=== PATIENT | female | born 1940 | race Caucasian/White ===

== ENCOUNTER 2017-04-01 17:19 | Inpatient (IN) | payer OTHER, MEDICAID ==
[~2017-04-01] VITALS: Ht 162.6 cm; Wt 89.2 kg
[~2017-04-01 17:19] MED LIST: DOCU-144 PO; GLIP-95 PO; HYD25 PO; LEVO50TA74 PO; MELO-110 PO; METF850T PO; OMEP20CA16 PO
[2017-04-01] MEDS ORDERED: SODIUM CHLORIDE 0.9% 1L BAG IV* STA (18:05)
[2017-04-01] MEDS ORDERED: ONDANSETRON 4 MG INJ IV STA (18:15)
[2017-04-01] MEDS ORDERED: morphine 2 MG INJ IV STA (18:15)
[2017-04-01] MEDS ORDERED: ACETAMINOPHEN 325 MG TAB PO ONE (18:30)
--- NOTE | 2017-04-01 18:57 | RADRPT ---
PROCEDURE: CT Abdomen and Pelvis without contrast. CLINICAL INDICATION: Abdominal pain. TECHNIQUE: CT scan of the abdomen and pelvis without contrast was performed on a multidetector hig h-resolution CT scanner. Coronal and sagittal reformatted images were obtained from the axial [facility] e images. Images were reviewed on a high-resolution PACS workstation. One or more of the following d ose reduction techniques were used: Automated exposure control, adjustment of the mA and/or kV accor ding to patient size and use of iterative reconstruction technique. The total exam CTDI equals 20.9 mGy and the total exam DLP equals 1217 mGy-cm. COMPARISON: None. FINDINGS: CT abdomen: Mild ground-glass opacities in the bilateral lung bases is likely atelectasis. The heart size is normal. No pericardial effusion identified. Right hilar calcifications, likely from old granulomatous disease. The liver demonstrates normal size and density. No liver mass identified. Multiple sub centimeter calcified granulomas in the liver. The gallbladder is surgically absent.. There is no intrahepatic or extrahepatic biliary dilatation. The spleen is normal in size. No focal splenic abnormality identified. No gross abnormality of the stomach is identified. The pancreas is unremarkable. The adrenal glands appear normal. The right kidney is surgically absent. The left kidney is unremarkable. There is no evidence of renal mass, renal calculi or hydronephrosis. The aorta is of normal caliber. Aortic vascular calcifications are present. No adenopathy identified. The bowel and mesentery are unremarkable. CT pelvis: The urinary bladder is decompressed and not well evaluated. Atherosclerotic calcification is seen in uterine arteries iliac arteries and femoral arteries. The pelvic organs are normal. The pelvic sidewalls and inguinal regions are clear. The sigmoid colon and rectum are remarkable for sigmoid diverticulosis. No adenopathy, free fluid or inflammatory change identified. The osseous structures are remarkable for degenerative spondylosis of the spine. No osteolytic or osteoblastic lesion is detected. IMPRESSION: 1. Previous cholecystectomy and right nephrectomy. 2. Calcified pulmonary and hepatic granulomas suggesting old granulomatous disease. 3. Advanced atherosclerotic coronary artery and peripheral vascular disease. 4. Mild sigmoid diverticulosis without evidence of diverticulitis. 5. No mass, lymphadenopathy, or focal acute inflammatory process is identified. RPTAT: QQ .Quique Hernandez MD, MD Date Time Electronically viewed and signed by .Quique Hernandez MD, on 04/01/2017 18:56 .M/
--- NOTE | 2017-04-01 19:01 | RADRPT ---
PROCEDURE: XR Chest. CLINICAL INDICATION: Sepsis TECHNIQUE: Anterior chest x-ray. COMPARISON: None. FINDINGS: The lungs are clear. No pleural effusion identified. There is no evidence of pneumothorax. There is atherosclerotic calcification of the aorta. The cardiomediastinal silhouette is otherwise u nremarkable. The soft tissues are normal. Osseous structures are unremarkable. IMPRESSION: 1. No acute disease is seen in the chest. RPTAT: QQ .Quique Hernandez MD, MD Date Time Electronically viewed and signed by .Quique Hernandez MD, MD on 04/01/2017 19:00 .M/
--- NOTE | 2017-04-01 19:17 | ERA ---
ER Documentation Chief Complaint Date/Time DATE: 04/01/17 TIME: 19:15 Chief Complaint ap x 1 week HPI 76-year-old female history of diabetes, obesity who presents to the emergency room complaining of abdominal pain. She describes abdominal pain for 1 week that is bandlike to the upper abdomen. It is constant and not postprandial. She also notes that her glucose values have been elevated despite taking oral medication. She had a low-grade fever upon arrival. She denies any recent travel sick contacts or antibiotics. No diarrhea. No dysuria urgency or frequency. ROS All systems reviewed and are negative except as per history of present illness. Medications Home Meds Active Scripts Meloxicam* (Mobic*) 15 Mg Tablet, 15 MG PO DAILY, #20 TAB Prov:SANDRINE PEREZ MD 05/28/15 Docusate Sodium* (Colace*) 100 Mg Capsule, 100 MG PO TID, #30 Prov:MARINA DANIEL MD 01/27/15 Reported Medications Levothyroxine Sodium* (Levothyroxine Sodium*) 50 Mcg Tablet, 50 MCG PO AC BREAKFAST, TAB STOPED TAKING THIS RX BAD SIDE EFFECTS REPORTED BY PT 01/27/15 Omeprazole* (Omeprazole*) 20 Mg Capsule.dr, 20 MG PO DAILY, CAP 12/16/14 Hydrochlorothiazide* (Hydrochlorothiazide*) 25 Mg Tab, 25 MG PO DAILY, TAB 12/16/14 Metformin Hcl* (Metformin Hcl*) 850 Mg Tablet, 850 MG PO BID, TAB 12/16/14 Glipizide* (Glipizide*) 10 Mg Tablet, 10 MG PO AC MEALS 04/12/13 Allergies Allergies: Coded Allergies: tramadol (Verified Allergy, Mild, itchy, 05/28/15) PMhx/Soc History of Surgery: Yes (RT KIDNEY REMOVAL 2007; GALL BLADDER REMOVAL 2007) Anesthesia Reaction: No Hx Neurological Disorder: No Hx Respiratory Disorders: No Hx Cardiac Disorders: No (HTN) Hx Miscellaneous Medical Probl: Yes (arthiritis, osteoporosis) Hx Alcohol Use: No Hx Substance Use: No Hx Tobacco Use: No FmHx Family History: diabetes Physical Exam Vitals Vital Signs Date Time Temp Pulse Resp B/P Pulse Ox O2 Delivery O2 Flow Rate FiO2 04/01/17 20:34 98.5 04/01/17 20:00 75 16 161/79 93 Room Air 04/01/17 19:00 88 20 115/49 97 Room Air 04/01/17 17:22 100.0 103 18 179/78 99 Physical Exam General: Well developed, well nourished, no acute distress Head: Normocephalic, atraumatic Eyes: Pupils equally reactive, EOM intact ENT: Moist mucous membranes Neck: Supple, no lymphadenopathy Respiratory: Lungs clear bilaterally, no distress Cardiovascular: RRR, no murmurs, rubs, or gallops Abdominal: Soft, diffuse abdominal tenderness that is inconsistent, negative Pichardo sign, no tenderness to McBurney's point, no peritonitis : Deferred MSK: No edema, no unilateral swelling, 5/5 strength Neurologic: Alert and oriented, moving all extremities, normal speech, no focal weakness, no cerebellar signs Skin: No rash Psych: Normal mood Result Diagram: 04/01/17190404/01/171904 Results 24 hrs Laboratory Tests Test 04/01/17 19:02 04/01/17 19:05 04/01/17 20:17 04/01/17 20:40 Blood Gas Specimen Source Blood venous Arterial Blood Date Drawn 04/01/2017 7:15:34 PM Arterial Blood Gas Puncture Site VENOUS LINE Yusuf Test N/A Venous Blood pH 7.399 Venous Blood pCO2 (Temp Corrected) 33.9mmHG Venous Blood pO2 (Temp Corrected) 74.0mmHG Venous Blood HCO3 20.5mmol/L Venous Blood Oxygen Saturation 94.3mmHG Venous Blood Base Excess -3.5mmol/L Venous Blood Total Hemoglobin 14.1g/dl Venous Blood Oxyhemoglobin 92.9% Venous Blood Methemoglobin 0.1% Carboxyhemoglobin 1.4% Blood Gas Temperature 37.0C Blood Gas Modality ROOM AIR FiO2 21.0% Blood Gas Notified Whom AA Blood Gas Notified Time 04/01/2017 7:25:14 PM White Blood Count 10.410^3/ul Red Blood Count 4.6110^6/ul Hemoglobin 13.0g/dl Hematocrit 39.3% Mean Corpuscular Volume 85.2fl Mean Corpuscular Hemoglobin 28.2pg Mean Corpuscular Hemoglobin Concent 33.1g/dl Red Cell Distribution Width 13.2% Platelet Count 07779^3/UL Mean Platelet Volume 10.7fl Neutrophils % 62.1% Lymphocytes % 28.3% Monocytes % 6.9% Eosinophils % 1.4% Basophils % 0.7% Nucleated Red Blood Cells % 0.0/100WBC Neutrophils # (Manual) 6.510^3/ul Lymphocytes # 3.010^3/ul Monocytes # 0.710^3/ul Eosinophils # 0.210^3/ul Basophils # 0.110^3/ul Nucleated Red Blood Cells # 0.010^3/ul Prothrombin Time 12.7Sec Prothrombin Time Ratio 1.0 INR International Normalized Ratio 0.95 Activated Partial Thromboplast Time 26.4Sec Sodium Level 134mmol/L Potassium Level 4.4mmol/L Chloride Level 100mmol/L Carbon Dioxide Level 21mmol/L Anion Gap 17 Blood Urea Nitrogen 42mg/dl Creatinine 2.48mg/dl Glucose Level 329mg/dl Lactic Acid Level 2.7mmol/L 2.1mmol/L Calcium Level 9.4mg/dl Total Bilirubin 0.2mg/dl Direct Bilirubin 0.00mg/dl Indirect Bilirubin 0.2mg/dl Aspartate Amino Transf (AST/SGOT) 22IU/L Alanine Aminotransferase (ALT/SGPT) 32IU/L Alkaline Phosphatase 112IU/L Total Protein 7.7g/dl Albumin 4.0g/dl Globulin 3.70g/dl Albumin/Globulin Ratio 1.08 Urine Color YELLOW Urine Clarity CLOUDY Urine pH 5.0 Urine Specific [place] 1.014 Urine Ketones NEGATIVEmg/dL Urine Nitrite NEGATIVEmg/dL Urine Bilirubin NEGATIVEmg/dL Urine Urobilinogen NEGATIVEmg/dL Urine Leukocyte Esterase 3+Violette/ul Urine Microscopic RBC 4/HPF Urine Microscopic WBC 177/HPF Urine Squamous Epithelial Cells FEW/HPF Urine Bacteria MANY/HPF Urine Hemoglobin 1+mg/dL Urine Glucose 2+mg/dL Urine Total Protein 1+mg/dl Current Medications Medications (Trade) Dose Ordered Sig/Alban Route PRN Reason Start Time Stop Time Status Last Admin Dose Admin Sodium Chloride (NS) 2,760 ml BOLUS OVER 2 HOURS STAT IV* 04/01/17 18:05 04/01/17 18:06 DC 04/01/17 19:29 Acetaminophen (Tylenol Tab) 650 mg ONCE ONCE PO 04/01/17 18:30 04/01/17 18:31 DC 04/01/17 19:30 Morphine Sulfate (morphine) 2 mg ONCE STAT IV 04/01/17 18:15 04/01/17 18:16 DC 04/01/17 19:31 Ondansetron HCl 4 mg 4 mg ONCE STAT IV 04/01/17 18:15 04/01/17 18:16 DC 04/01/17 19:30 Ceftriaxone Sodium (Rocephin) 50 ml @ 100 mls/hr ONCE ONCE IVPB 04/01/17 21:30 04/01/17 21:59 DC 04/01/17 21:44 Ondansetron HCl (Zofran Inj) 4 mg BRIDGE ORDER PRN IV NAUSEA AND/OR VOMITING 04/01/17 22:30 04/02/17 22:29 Acetaminophen (Tylenol Tab) 650 mg ER BRIDGE PRN PO MILD PAIN/FEVER 04/01/17 22:30 04/02/17 22:29 Procedures/MDM EKG, MONITORS, & DIAGNOSTIC IMAGING: Chest x-ray: I reviewed and interpreted a 1 view of the chest Mediastinum: No enlargement Cardiac silhouette: No cardiomegaly Airspace: Clear lung devries bilaterally without evidence of pneumothorax Bones: No evidence of fracture EKG: I reviewed and interpreted a 12-lead EKG. Rhythm: Normal sinus rhythm Ectopy: None Intervals: No abnormalities ST segments: No elevations or depressions T waves: No contiguous inversions CT abdomen and pelvis IMPRESSION: 1. Previous cholecystectomy and right nephrectomy. 2. Calcified pulmonary and hepatic granulomas suggesting old granulomatous disease. 3. Advanced atherosclerotic coronary artery and peripheral vascular disease. 4. Mild sigmoid diverticulosis without evidence of diverticulitis. 5. No mass, lymphadenopathy, or focal acute inflammatory process is identified. RPTAT: QQ LAB INTERPRETATION: No leukocytosis or left shift, lactic acid elevation but down trending to 2.1. The patient has a creatinine elevation above baseline, urinary tract infection noted MEDICAL DECISION MAKING: The patient presents with low-grade fever and abdominal pain. Given the patient 's age this is a very broad differential includes intra-abdominal process, urinary tract infection, viral process among others. Low concern for cardiac etiology or pulmonary process. The patient will benefit from sepsis screening, symptom control. The patient also has hyperglycemia will benefit to rule out diabetic ketoacidosis. ER COURSE: The patient was given IV fluids, 30 cc/kg. The patient had blood cultures. The patient does have evidence of urinary tract infection. She was given ceftriaxone. The patient only has 1 out of 4 Sirs criteria. She does have lactic acid elevation but this does not meet from criteria for sepsis or severe sepsis. The patient was given ceftriaxone and 30/kg of saline. Her lactic acid is trending down. No indication for pressors or central line. I kept the patient and/or family informed of laboratory and diagnostic imaging results throughout the emergency room course. DISPOSITION PLAN: Medical surgical admission for management of dehydration and urinary tract infection CONSULTATION: Accepting care team and consultations: I discussed the current laboratory data, diagnostic imaging and emergency care provided. Admitting team: Dr. Ohara Admitting team indication: Insurance directed Sepsis Documentation: It should be noted that the patient only had 1 out of 4 Sirs criteria in the emergency department, this is not consistent with sepsis. Patient's infectious symptoms have not stabilized and the patient is at risk of rapid decompensation. The patient will be admitted for careful hydration, antibiotic therapy, and infectious source control. SEVERE SEPSIS CRITERIA: Infectious source: Urinary tract infection End organ damage indicated by: [Lactate > 2.0 mmol/L SEPSIS MANAGEMENT Time of recognition of severe sepsis/septic shock: Urinary tract infection diagnosed at 9:26 PM 3 HOUR BUNDLE Blood cultures x 2 before broad-spectrum antibiotics: Yes 30 ml/kg NS bolus Completed Initial lactate greater than 2 Repeat lactate 2.1 SEPTIC SHOCK ASSESSMENT: No lactic acid > 4.0 No persistent hypotension (SBP < 90 or 40 mmHg drop, MAP < 65) despite 30 mL/kg IV fluid bolus VOLUME REASSESSMENT FOR SEPTIC SHOCK: Patient does not meet septic shock criteria PERSISTENT HYPOTENSION TREATMENT: Comfort care No Central line Not Required Vasopressor started Not required I considered further perfusion assessment with CVP measurement, SCVO2, bedside ultrasound volume assessment, passive leg raise, trial of further fluid bolus. And proceeded with 30 ml/kg fluid bolus of NSS, broad spectrum antbiotics, and admission. CRITICAL CARE Critical care time 35 minutes Emergent fluid management while maintaining close respiratory support. Provision of immediate and broad-spectrum antibiotic therapy. Simultaneous assessment for possible sources in order to direct targeted therapy. Consideration for invasive and chemical support to prevent cardiopulmonary collapse. Critical care time is independent of procedures performed. Departure Diagnosis: Primary Impression: Abdominal pain Qualified Code: R10.84 - Generalized abdominal pain Additional Impressions: Urinary tract infection Qualified Code: N30.00 - Acute cystitis without hematuria Lactic acidosis Acute renal insufficiency Condition: Stable TASHIA WYNNE MD Apr 01, 2017 19:17
[2017-04-01 19:27] LABS: MODE ROOM AIR; MetHgb Venous 0.1 %; Sample Type Blood venous; Venous COHb 1.4 %; Venous Fraction OxyHgb 92.9 %; Venous Total Hemglobin 14.1 g/dl
[2017-04-01 19:33] LABS: BASOPHIL # 0.1 10^3/ul (0.0-0.1); BASOPHILS % 0.7 % (0.0-2.0); EOSINOPHILS # 0.2 10^3/ul (0.0-0.5); EOSINOPHILS % 1.4 % (0.0-7.0); HEMATOCRIT 39.3 % (37.0-47.0); LYMPHOCYTES % 28.3 % (15.0-51.0); MEAN CORPUSCULAR HEMOGLOBIN 28.2 pg (29.0-33.0); MEAN CORPUSCULAR HGB CONC 33.1 g/dl (32.0-37.0); MEAN CORPUSCULAR VOLUME 85.2 fl (82.0-101.0); MEAN PLATELET VOLUME 10.7 fl (7.4-10.4); MONOCYTE # 0.7 10^3/ul (0.3-0.9); MONOCYTES % 6.9 % (0.0-11.0); NEUTROPHILS % 62.1 % (39.0-77.0); PLATELET COUNT 314 10^3/UL (140-415); RED BLOOD COUNT 4.61 10^6/ul (4.20-5.40); RED CELL DISTRIBUTION WIDTH 13.2 % (11.5-14.5); WHITE BLOOD COUNT 10.4 10^3/ul (4.8-10.8)
[2017-04-01 19:48] LABS: INR 0.95; PROTIME 12.7 Sec (12.2-14.2)
[2017-04-01 19:49] LABS: ALBUMIN/GLOBULIN RATIO 1.08; BILIRUBIN,INDIRECT 0.2 mg/dl (0-1.1); BILIRUBIN,TOTAL 0.2 mg/dl (0.2-1.3); CALCIUM 9.4 mg/dl (8.4-10.2); CREATININE 2.48 mg/dl (0.44-1.00); PARTIAL THROMBOPLASTIN TIME 26.4 Sec (25.0-35.0); POTASSIUM 4.4 mmol/L (3.5-5.1); TOTAL PROTEIN 7.7 g/dl (6.1-8.1)
[2017-04-01 21:17] LABS: ADD UMIC YES; UR ASCORBIC ACID NEGATIVE (NEGATIVE); UR BACTERIA MANY /HPF (NONE SEEN); UR BILIRUBIN (Dip) NEGATIVE (NEGATIVE); UR BLOOD (Dip) 1+ mg/dL (NEGATIVE); UR CLARITY CLOUDY (CLEAR); UR COLOR YELLOW (YELLOW); UR GLUCOSE (Dip) 2+ mg/dL (NEGATIVE); UR KETONES (Dip) NEGATIVE (NEGATIVE); UR LEUKOCYTE ESTERASE (Dip) 3+ Leu/ul (NEGATIVE); UR NITRITE (Dip) NEGATIVE (NEGATIVE); UR RBC 4 /HPF (0-5); UR SPECIFIC GRAVITY (Dip) 1.014 (1.003-1.030); UR SQUAMOUS EPITHELIAL CELL FEW /HPF (FEW); UR TOTAL PROTEIN (Dip) 1+ mg/dl (NEGATIVE); UR UROBILINOGEN (Dip) NEGATIVE (NEGATIVE); UR WBC CLUMPS MANY /HPF (NONE SEEN)
[2017-04-01] MEDS ORDERED: CEFTRIAXONE 2 GM/50 ML (PMX) 50 ML IVPB ONE (21:30)
[2017-04-01] MEDS ORDERED: ACETAMINOPHEN 325 MG TAB PO PRN (22:30)
[2017-04-01] MEDS ORDERED: ONDANSETRON 4 MG INJ IV PRN (22:30)
[2017-04-01 23:28] VITALS: TEMP 98.5
[2017-04-02] VITALS (7 sets, daily range): BP systolic 112–162; BP diastolic 52–73; PULSE 66; RESP 18; Ht 162.6 cm; Wt 89.2 kg
[2017-04-02] MEDS ORDERED: HYD25 PO (00:20)
[2017-04-02] MEDS ORDERED: LOSA50TA6 PO (00:20)
[2017-04-02] MEDS ORDERED: DICY10CA60 PO (00:20)
[2017-04-02] MEDS ORDERED: METF1000 PO (00:20)
[2017-04-02] MEDS ORDERED: ATOR40TA68 PO (00:20)
[2017-04-02] MEDS ORDERED: NACL 0.9% 3 ML SYG IV SCH (01:00)
[2017-04-02] MEDS ORDERED: ONDANSETRON 4 MG INJ IV PRN (01:00)
[2017-04-02] MEDS ORDERED: morphine 2 MG INJ IV PRN (01:00)
[2017-04-02] MEDS ORDERED: GLUCOSE GEL 15 GRAM TUBE PO PRN ×2 (01:30)
[2017-04-02] MEDS ORDERED: GLUCAGON 1 MG INJ IM PRN (01:30)
[2017-04-02] MEDS ORDERED: GLUCOSE GEL 15 GRAM TUBE BUCCAL PRN (01:30)
[2017-04-02] MEDS ORDERED: DEXTROSE 50% 50 ML SYRINGE IV PRN ×2 (01:30)
[2017-04-02] MEDS: SOD CHLORIDE 0.9% 1,000 ML IV SCH ×2 (01:36→14:54)
[2017-04-02] MEDS ORDERED: ACCU-CHEK XX SCH ×4 (02:00)
[2017-04-02] MEDS: INSULIN ASPART [NOVOLOG] 3 ML PEN SC SCH ×5 (02:15→20:36)
[2017-04-02] MEDS ORDERED: CEFTRIAXONE 1 GM/50 ML (PMX) 50 ML IVPB SCH (03:00)
[2017-04-02 06:08] LABS: BASOPHIL # 0.1 10^3/ul (0.0-0.1); BASOPHILS % 0.7 % (0.0-2.0); EOSINOPHILS # 0.3 10^3/ul (0.0-0.5); EOSINOPHILS % 3.1 % (0.0-7.0); HEMATOCRIT 35.4 % (37.0-47.0); HEMOGLOBIN 11.1 g/dl (12.0-16.0); LYMPHOCYTES # 3.4 10^3/ul (0.8-2.9); MEAN CORPUSCULAR HEMOGLOBIN 27.3 pg (29.0-33.0); MEAN CORPUSCULAR HGB CONC 31.4 g/dl (32.0-37.0); MEAN CORPUSCULAR VOLUME 87.2 fl (82.0-101.0); MEAN PLATELET VOLUME 10.7 fl (7.4-10.4); MONOCYTE # 0.8 10^3/ul (0.3-0.9); MONOCYTES % 8.5 % (0.0-11.0); NEUTROPHILS % 53.1 % (39.0-77.0); PLATELET COUNT 289 10^3/UL (140-415); RED BLOOD COUNT 4.06 10^6/ul (4.20-5.40); RED CELL DISTRIBUTION WIDTH 13.6 % (11.5-14.5); WHITE BLOOD COUNT 9.9 10^3/ul (4.8-10.8)
[2017-04-02 06:48] LABS: ALBUMIN/GLOBULIN RATIO 0.9; BILIRUBIN,INDIRECT 0.1 mg/dl (0-1.1); BILIRUBIN,TOTAL 0.1 mg/dl (0.2-1.3); CALCIUM 8.3 mg/dl (8.4-10.2); CREATININE 2.3 mg/dl (0.44-1.00); TOTAL PROTEIN 6.3 g/dl (6.1-8.1)
--- NOTE | 2017-04-02 06:57 | HP ---
Date/Time of Note Date/Time of Note DATE: 04/02/17 TIME: 06:40 Assessment/Plan VTE Prophylaxis VTE Prophylaxis Intervention: SCD's Lines/Catheters IV [facility] Peripheral IV Urinary Cath still in place: No Assessment/Plan Chief Complaint/Hosp Course This is a 76-year-old female being admitted to the [facility] floor for: #1 abdominal pain: CAT scan did not show any acute abnormalities. Patient has reported that she is having 7 bowel movements prior to coming to the hospital. At the current time will order stool studies. She does report mild fevers. She also has a urinary tract infection with also could be contributing. Currently on antibiotics. #2 lactic acidosis: Likely secondary to underlying urinary tract infection and/ or metformin use. At the current time we will treat the UTI with antibiotics. Will hold metformin at this time. Provide IV fluid hydration. Will continue to monitor lactate level. #3 urinary tract infection: The current time we will treat with ceftriaxone. Will obtain urine culture. #4 chronic kidney disease, acute on chronic: At the current time will provide patient with IV fluid hydration. Patient does have history of a right nephrectomy however she does not know why she was removed. We will continue to monitor this if we need nephrology will consult them. #5 diarrhea: There are no signs of any inflammation or signs of colitis in the CAT scan. She has not had any bowel movement since coming to the hospital. Will order stool studies. This could be viral in nature as it is only been going on for 1 day according to the patient, however we will be cautious. #6 hypertension: Continue to monitor blood pressure and restart all medications as indicated #7 diabetes mellitus: Check hemoglobin A1c, will hold metformin at this time secondary to #2. Insulin sliding scale #8 hypothyroidism: Apparently patient does not take thyroid medication as she was allergic to it according to her. Will check a thyroid level, and may need to discuss medications with endocrinology if patient thyroid function is normal. #9 DVT and GI prophylaxis: SCDs, acid gisella Further treatment strategy will be implemented as per the clinical course Problems: HPI/ROS Admit Date/Time Admit Date/Time Apr 01, 2017 at 22:17 Hx of Present Illness Chief complaint: Abdominal pain 76-year-old female history of diabetes, obesity who presents to the emergency room complaining of abdominal pain. She describes abdominal pain for 1 week that is bandlike to the upper abdomen. It is constant and not postprandial. She also notes that her glucose values have been elevated despite taking oral medication. She had a low-grade fever upon arrival. She denies any recent travel sick contacts or antibiotics. Patient reports 7 bowel movements today. She also reports dysuria. Allergies: Tramadol Medications: See LIZ HERRERA Const: As per HPI Eyes : No pain discharge or redness or change in visual acuity ENT: No pain, sore throat, congestion, congestion, dysphagia or discharge Respiratory: No shortness of breath, cough, sputum, wheezing, or pleuritic pain Cardiovascular: No chest pain, palpitation, PND, or edema GI : As per HPI Genitourinary: As per HPI Musculoskeletal: No joint pain, back pain, neck pain, restricted range of motion in neck or joints Skin: No rash, bruising or hives Neuro: No headache, dizziness, syncope, seizure, focal weakness Endocrine: No polyuria, polydipsia, temperature intolerance Psych: No hallucination, depression, anxiety or suicidal ideation PMH/Family/Social Past Medical History Hypertension, diabetes mellitus, hyperlipidemia, hypothyroidism Past Surgical History Right nephrectomy, cholecystectomy Family History Significant Family History: no pertinent family hx Social History Alcohol Use: none Smoking Status: Never smoker Drug Use: none Exam/Review of Systems Vital Signs Vitals Vital Signs Date Time Temp Pulse Resp B/P Pulse Ox O2 Delivery O2 Flow Rate FiO2 04/02/17 02:30 98.2 66 18 112/56 98 Room Air Intake and Output 04/01/17 04/01/17 04/02/17 15:00 23:00 07:00 Intake Total 2065 ml Balance 2065 ml Exam Exam General: Patient is a pleasant female laying in bed in no acute distress HEENT: Atraumatic, normocephalic. The pupils are equal, round and reactive. Extraocular motor are intact Neck: Supple with full range of motion. No rigidity or meningismus Chest: Nontender Lungs: Clear to auscultation bilaterally no crackles rales or wheezing Heart: Normal S1-S2, Regular rhythm and rate. No overt murmurs appreciated Abdomen: Soft, tenderness to palpation over the suprapubic region, normal bowel sounds Extremities: Normal to inspection, no edema no cyanosis Neurologic: Normal mental status, speech normal, cranial nerves II through XII are intact, motor and sensory are intact, no focal weakness Additional Comments PROCEDURE: CT Abdomen and Pelvis without contrast. CLINICAL INDICATION: Abdominal pain. TECHNIQUE: CT scan of the abdomen and pelvis without contrast was performed on a multidetector high-resolution CT scanner. Coronal and sagittal reformatted images were obtained from the axial source images. Images were reviewed on a high-resolution PACS workstation. One or more of the following dose reduction techniques were used: Automated exposure control, adjustment of the mA and/or kV according to patient size and use of iterative reconstruction technique. The total exam CTDI equals 20.9 mGy and the total exam DLP equals 1217 mGy-cm. COMPARISON: None. FINDINGS: CT abdomen: Mild ground-glass opacities in the bilateral lung bases is likely atelectasis. The heart size is normal. No pericardial effusion identified. Right hilar calcifications, likely from old granulomatous disease. The liver demonstrates normal size and density. No liver mass identified. Multiple sub centimeter calcified granulomas in the liver. The gallbladder is surgically absent.. There is no intrahepatic or extrahepatic biliary dilatation. The spleen is normal in size. No focal splenic abnormality identified. No gross abnormality of the stomach is identified. The pancreas is unremarkable. The adrenal glands appear normal. The right kidney is surgically absent. The left kidney is unremarkable. There is no evidence of renal mass, renal calculi or hydronephrosis. The aorta is of normal caliber. Aortic vascular calcifications are present. No adenopathy identified. The bowel and mesentery are unremarkable. CT pelvis: The urinary bladder is decompressed and not well evaluated. Atherosclerotic calcification is seen in uterine arteries iliac arteries and femoral arteries. The pelvic organs are normal. The pelvic sidewalls and inguinal regions are clear. The sigmoid colon and rectum are remarkable for sigmoid diverticulosis. No adenopathy, free fluid or inflammatory change identified. The osseous structures are remarkable for degenerative spondylosis of the spine. No osteolytic or osteoblastic lesion is detected. IMPRESSION: 1. Previous cholecystectomy and right nephrectomy. 2. Calcified pulmonary and hepatic granulomas suggesting old granulomatous disease. 3. Advanced atherosclerotic coronary artery and peripheral vascular disease. 4. Mild sigmoid diverticulosis without evidence of diverticulitis. 5. No mass, lymphadenopathy, or focal acute inflammatory process is identified. RPTAT: QQ .Quique Hernandez MD, MD Date Time Electronically viewed and signed by .Quique Hernandez MD, MD on 04/01/2017 18: 56 .M/ CC: TASHIA WYNNE MD PROCEDURE: XR Chest. CLINICAL INDICATION: Sepsis TECHNIQUE: Anterior chest x-ray. COMPARISON: None. FINDINGS: The lungs are clear. No pleural effusion identified. There is no evidence of pneumothorax. There is atherosclerotic calcification of the aorta. The cardiomediastinal silhouette is otherwise unremarkable. The soft tissues are normal. Osseous structures are unremarkable. IMPRESSION: 1. No acute disease is seen in the chest. RPTAT: QQ .Quique Hernandez MD, MD Date Time Electronically viewed and signed by .Quique Hernandez MD, MD on 04/01/2017 19: 00 .M/ CC: TASHIA WYNNE MD Labs Result Diagram: 04/02/17 0537 04/01/17 1905 Medications Medications Current Medications Sodium Chloride (NS) 1,000 ml @ 70 mls/hr [id number] IV Last administered on 04/02t 01:36; Admin Dose 70 MLS/HR; Start 04/02/17 at 00:52 Ondansetron HCl (Zofran Inj) 4 mg Q6H PRN IV NAUSEA AND/OR VOMITING; Start 06/08 at 01:00 Acetaminophen (Tylenol Tab) 650 mg Q6H PRN PO PAIN LEVEL 1-3 OR FEVER; Start at 01:00 Morphine Sulfate (morphine) 2 mg Q4H PRN IV SEVERE PAIN LEVEL 7-10; Start 04/02 at 01:00 Famotidine (Pepcid Iv) 20 mg DAILY IV ; Start 04/02/17 at 09:00 Diagnostic Test (Pha) (Accu-Chek) 1 ea 02 XX ; Start 04/02/17 at 02:00 Diagnostic Test (Pha) (Accu-Chek) 1 ea 02 XX ; Start 04/02/17 at 02:00 Atorvastatin Calcium (Lipitor) 40 mg QHS PO ; Start 04/02/17 at 21:00 Losartan Potassium (Cozaar) 50 mg DAILY PO ; Start 04/02/17 at 09:00 Miscellaneous Information 1 ea NOTE XX ; Start 04/02/17 at 01:30 Glucose (Glutose) 15 gm Q15M PRN PO DECREASED GLUCOSE; Start 04/02/17 at 01:30 Glucose (Glutose) 22.5 gm Q15M PRN PO DECREASED GLUCOSE; Start 04/02/17 at 01: 30 Dextrose (D50w Syringe) 25 ml Q15M PRN IV DECREASED GLUCOSE; Start 04/02/17 at 01:30 Dextrose (D50w Syringe) 50 ml Q15M PRN IV DECREASED GLUCOSE; Start 04/02/17 at 01:30 Glucagon (Glucagen) 1 mg Q15M PRN IM DECREASED GLUCOSE; Start 04/02/17 at 01:30 Glucose 15 gm 15 gm Q15M PRN BUCCAL DECREASED GLUCOSE; Start 04/02/17 at 01:30 Ceftriaxone Sodium (Rocephin) 50 ml @ 100 mls/hr Q24H IVPB ; Start 04/02/17 at 21:00 YESSICA AUGUST Apr 02, 2017 06:53
[2017-04-02] MEDS ORDERED: LEVOTHYROXINE 50 MCG TAB PO SCH (07:30)
[2017-04-02] MEDS ORDERED: INSULIN ASPART [NOVOLOG] 3 ML PEN SC SCH ×2 (08:00)
[2017-04-02] MEDS: LOSARTAN 50 MG TAB PO SCH (08:32)
[2017-04-02 08:50] LABS: FREE T3 3.17 pg/ml (2.77-5.27)
[2017-04-02] MEDS ORDERED: FAMOTIDINE 20 MG INJ IV SCH (09:00)
[2017-04-02 09:04] LABS: TRIIODOTHYRONINE 0.78 ng/ml (0.97-1.69)
[2017-04-02] MEDS: ACETAMINOPHEN 325 MG TAB PO PRN (20:21)
[2017-04-02] MEDS: CEFTRIAXONE 1 GM/50 ML (PMX) 50 ML IVPB SCH (20:21)
[2017-04-02] MEDS: ATORVASTATIN 40 MG TAB PO SCH (20:21)
[2017-04-03] MEDS ORDERED: ACCU-CHEK XX SCH (02:00)
[2017-04-03] MEDS: SOD CHLORIDE 0.9% 1,000 ML IV SCH ×2 (02:45→18:22)
[2017-04-03] MEDS: ACCU-CHEK XX SCH ×2 (02:49→20:22)
[2017-04-03 03:08] VITALS: BP 135/63; RESP 18
[2017-04-03 06:00] LABS: BASOPHIL # 0.1 10^3/ul (0.0-0.1); EOSINOPHILS # 0.4 10^3/ul (0.0-0.5); EOSINOPHILS % 4.7 % (0.0-7.0); HEMOGLOBIN 11.2 g/dl (12.0-16.0); LYMPHOCYTES # 3.3 10^3/ul (0.8-2.9); LYMPHOCYTES % 37.5 % (15.0-51.0); MEAN CORPUSCULAR HEMOGLOBIN 27.4 pg (29.0-33.0); MEAN CORPUSCULAR HGB CONC 31.1 g/dl (32.0-37.0); MEAN PLATELET VOLUME 10.9 fl (7.4-10.4); MONOCYTE # 0.7 10^3/ul (0.3-0.9); MONOCYTES % 7.9 % (0.0-11.0); NEUTROPHILS % 48.3 % (39.0-77.0); PLATELET COUNT 293 10^3/UL (140-415); RED BLOOD COUNT 4.09 10^6/ul (4.20-5.40); RED CELL DISTRIBUTION WIDTH 13.8 % (11.5-14.5); WHITE BLOOD COUNT 8.9 10^3/ul (4.8-10.8)
[2017-04-03 06:23] LABS: CALCIUM 8.9 mg/dl (8.4-10.2); CREATININE 1.65 mg/dl (0.44-1.00); POTASSIUM 4.4 mmol/L (3.5-5.1)
[2017-04-03 07:30] VITALS: BP 146/64; RESP 18
[2017-04-03] MEDS ORDERED: INSULIN ASPART [NOVOLOG] 3 ML PEN SC SCH (07:35)
[2017-04-03] MEDS: INSULIN ASPART [NOVOLOG] 3 ML PEN SC SCH ×7 (08:28→20:21)
[2017-04-03] MEDS: INSULIN GLARGINE [LANtus] 3 ML PEN SC SCH (08:28)
[2017-04-03] MEDS: LOSARTAN 50 MG TAB PO SCH (08:30)
[2017-04-03] MEDS ORDERED: FAMOTIDINE 20 MG TAB PO SCH (09:00)
[2017-04-03 14:13] VITALS: BP 145/64; RESP 18
--- NOTE | 2017-04-03 17:28 | PN ---
Date/Time of Note Date/Time of Note DATE: 04/03/17 TIME: 17:12 Assessment/Plan VTE Prophylaxis VTE Prophylaxis Intervention: SCD's Lines/Catheters IV Catheter Type (from Rust): Saline Lock Urinary Cath still in place: No Assessment/Plan Chief Complaint/Hosp Course 1. Sepsis secondary to cystitis Continue antibiotics Urine culture shows Klebsiella 2. Acute kidney disease on possible CKD secondary to sepsis Continue antibiotics and fluids 3. Diarrhea-resolved Stool culture normal 4. Diabetes-uncontrolled Started on insulin regimen tobacco prevention health educator consultation 5. Hypertension Hold ARB, start Norvasc 6. Hypothyroidism: Apparently patient does not take thyroid medication as she was allergic to it -Should follow-up with endocrinology DVT and GI prophylaxis: SCDs Problems: Subjective 24 Hr Interval Summary Constitutional: no complaints Exam/Review of Systems Vital Signs Vitals Vital Signs Date Time Temp Pulse Resp B/P Pulse Ox O2 Delivery O2 Flow Rate FiO2 04/03/17 14:13 97.6 64 18 145/64 97 04/02/17 02:30 Room Air Intake and Output 04/02/17 04/02/17 04/03/17 15:00 23:00 07:00 Intake Total 755 ml 1210 ml 1970 ml Output Total 300 ml Balance 755 ml 910 ml 1970 ml Exam Constitutional: alert, oriented Respiratory: clear to auscultation Cardiovascular: regular rate and rhythm Gastrointestinal: soft, No distended Musculoskeletal: nl extremities to inspection Results Result Diagram: 04/03/17 0450 04/03/17 0442 Results 24 hrs Laboratory Tests Test 04/02/17 17:17 04/02/17 20:34 04/03/17 02:48 04/03/17 04:42 Bedside Glucose 228 H 262 H 182 Sodium Level 139 Potassium Level 4.4 Chloride Level 110 Carbon Dioxide Level 23 Anion Gap 10 Blood Urea Nitrogen 31 H Creatinine 1.65 H Glucose Level 220 Calcium Level 8.9 Test 04/03/17 04:50 04/03/17 07:58 04/03/17 12:20 White Blood Count 8.9 Red Blood Count 4.09 L Hemoglobin 11.2 L Hematocrit 36.0 L Mean Corpuscular Volume 88.0 Mean Corpuscular Hemoglobin 27.4 L Mean Corpuscular Hemoglobin Concent 31.1 L Red Cell Distribution Width 13.8 Platelet Count 293 Mean Platelet Volume 10.9 H Neutrophils % 48.3 Lymphocytes % 37.5 Monocytes % 7.9 Eosinophils % 4.7 Basophils % 1.0 Nucleated Red Blood Cells % 0.0 Neutrophils # (Manual) 4.3 Lymphocytes # 3.3 H Monocytes # 0.7 Eosinophils # 0.4 Basophils # 0.1 Nucleated Red Blood Cells # 0.0 Bedside Glucose 257 H 220 Medications Medications Current Medications Sodium Chloride (NS) 1,000 ml @ 70 mls/hr [id number] IV Last administered on 04/03 02:45; Admin Dose 70 MLS/HR; Start 04/02/17 at 00:52 Ondansetron HCl (Zofran Inj) 4 mg Q6H PRN IV NAUSEA AND/OR VOMITING; Start 06/08 at 01:00 Acetaminophen (Tylenol Tab) 650 mg Q6H PRN PO PAIN LEVEL 1-3 OR FEVER Last administered on 04/02/17 20:21; Admin Dose 650 MG; Start 04/02/17 at 01:00 Morphine Sulfate (morphine) 2 mg Q4H PRN IV SEVERE PAIN LEVEL 7-10; Start 04/02 at 01:00 Atorvastatin Calcium (Lipitor) 40 mg QHS PO Last administered on 04/02/17 20: 21; Admin Dose 40 MG; Start 04/02/17 at 21:00 Losartan Potassium (Cozaar) 50 mg DAILY PO Last administered on 04/03/17 08:30 ; Admin Dose 50 MG; Start 04/02/17 at 09:00 Miscellaneous Information 1 ea NOTE XX ; Start 04/02/17 at 01:30 Glucose (Glutose) 15 gm Q15M PRN PO DECREASED GLUCOSE; Start 04/02/17 at 01:30 Glucose (Glutose) 22.5 gm Q15M PRN PO DECREASED GLUCOSE; Start 04/02/17 at 01: 30 Dextrose (D50w Syringe) 25 ml Q15M PRN IV DECREASED GLUCOSE; Start 04/02/17 at 01:30 Dextrose (D50w Syringe) 50 ml Q15M PRN IV DECREASED GLUCOSE; Start 04/02/17 at 01:30 Glucagon (Glucagen) 1 mg Q15M PRN IM DECREASED GLUCOSE; Start 04/02/17 at 01:30 Glucose 15 gm 15 gm Q15M PRN BUCCAL DECREASED GLUCOSE; Start 04/02/17 at 01:30 Ceftriaxone Sodium (Rocephin) 50 ml @ 100 mls/hr Q24H IVPB Last administered on 04/02/17 20:21; Admin Dose 100 MLS/HR; Start 04/02/17 at 21:00 Famotidine (Pepcid) 20 mg DAILY PO Last administered on 04/03/17 08:30; Admin Dose 20 MG; Start 04/03/17 at 09:00 Insulin Glargine (Lantus) 18 unit DAILY@08 SC Last administered on 04/03/17 08 :28; Admin Dose 18 UNIT; Start 04/03/17 at 08:00 Diagnostic Test (Pha) (Accu-Chek) 1 ea 02 XX Last administered on 04/03/17 02: 49; Admin Dose 1 EA; Start 04/03/17 at 02:00 ALBERTO POP Apr 03, 2017 17:22
[2017-04-03] MEDS: ATORVASTATIN 40 MG TAB PO SCH (20:21)
[2017-04-03] MEDS: CEFTRIAXONE 1 GM/50 ML (PMX) 50 ML IVPB SCH (20:21)
[2017-04-03 20:34] VITALS: BP 137/58; RESP 21
[2017-04-04] MEDS: ACETAMINOPHEN 325 MG TAB PO PRN (02:11)
[2017-04-04 02:53] VITALS: BP 150/76; RESP 20
[2017-04-04] MEDS: SOD CHLORIDE 0.9% 1,000 ML IV SCH (05:06)
[2017-04-04 06:25] LABS: BASOPHIL # 0.1 10^3/ul (0.0-0.1); EOSINOPHILS # 0.5 10^3/ul (0.0-0.5); EOSINOPHILS % 4.7 % (0.0-7.0); HEMATOCRIT 33.4 % (37.0-47.0); HEMOGLOBIN 10.6 g/dl (12.0-16.0); LYMPHOCYTES # 3.8 10^3/ul (0.8-2.9); LYMPHOCYTES % 38.8 % (15.0-51.0); MEAN CORPUSCULAR HEMOGLOBIN 27.7 pg (29.0-33.0); MEAN CORPUSCULAR HGB CONC 31.7 g/dl (32.0-37.0); MEAN CORPUSCULAR VOLUME 87.4 fl (82.0-101.0); MEAN PLATELET VOLUME 10.8 fl (7.4-10.4); MONOCYTE # 0.8 10^3/ul (0.3-0.9); NEUTROPHILS % 47.1 % (39.0-77.0); PLATELET COUNT 277 10^3/UL (140-415); RED BLOOD COUNT 3.82 10^6/ul (4.20-5.40); RED CELL DISTRIBUTION WIDTH 13.8 % (11.5-14.5); WHITE BLOOD COUNT 9.7 10^3/ul (4.8-10.8)
[2017-04-04 06:52] LABS: CALCIUM 8.8 mg/dl (8.4-10.2); CREATININE 1.25 mg/dl (0.44-1.00); MAGNESIUM 1.7 mg/dl (1.7-2.5); POTASSIUM 4.4 mmol/L (3.5-5.1)
[2017-04-04 08:00] VITALS: BP 175/83; RESP 20
[2017-04-04] MEDS: INSULIN ASPART [NOVOLOG] 3 ML PEN SC SCH ×6 (08:06→17:37)
[2017-04-04] MEDS: INSULIN GLARGINE [LANtus] 3 ML PEN SC SCH (08:08)
[2017-04-04] MEDS ORDERED: AMLODIPINE 5 MG TAB PO SCH (09:00)
[2017-04-04 11:00] VITALS: BP 158/67; PULSE 68
[2017-04-04] MEDS ORDERED: AMLODIPINE 5 MG TAB PO ONE (12:00)
[2017-04-04 14:00] VITALS: BP 135/64; RESP 18
[2017-04-04] MEDS ORDERED: AMLO-147 PO (14:53)
[2017-04-04] MEDS ORDERED: LANT3I SC (14:53)
[2017-04-04] MEDS ORDERED: NOVO3I SC (14:53)
[2017-04-04] MEDS ORDERED: CEFTRIAXONE 1 GM/50 ML (PMX) 50 ML IVPB ONE (15:00)
--- NOTE | 2017-04-04 15:00 | PDOCDIS ---
Discharge Instructions CONDITION Patient Condition: Good HOME CARE INSTRUCTIONS: Special Diet: Low Carb ACTIVITY: Activity Restrictions: No Restrictions FOLLOW UP/APPOINTMENTS Follow-up Plan F/U WITH YOUR PCP IN 1-2 WEEKS PLEASE DISCUSS WITH YOUR PCP ABOUT RESTARTING LOSARTAN WHEN THE KIDNEYS HAVE RECOVERED, FOR NOW HOLD OFF ON LOSARTAN AND HAVE GIVEN YOU A NEW MEDICATION FOR BLOOD PRESSURE-NORVASC, YOUR PCP SHOULD EITHER CONTINUE THIS WITH LOSARTAN ONCE YOUR KIDNEYS HAVE NORMALIZED OR STOP THE NORVASC AND JUST USE LOSARTAN DEPENDING ON YOUR BLOOD PRESSURE ALBERTO POP Apr 04, 2017 15:00
[2017-04-04] MEDS ORDERED: FLUCONAZOLE 150 MG TAB PO ONE (15:30)
--- NOTE | 2017-04-04 18:03 | DS ---
Date/Time of Note Date/Time of Note DATE: 04/04/17 TIME: 17:54 Discharge Summary Admission/Discharge Info Admit Date/Time Apr 01, 2017 at 22:17 Discharge Date/Time 1. Sepsis secondary to cystitis-resolved Status post antibiotics Urine culture shows Klebsiella 2. Acute kidney disease on possible CKD secondary to sepsis-resolving Status post antibiotics and fluids Patient to follow with PCP as outpatient 3. Diarrhea-resolved Stool culture normal 4. Diabetes-uncontrolled Started on insulin regimen in-house and have discharged with subcu insulin family living educator consultation appreciated Patient to follow-up with poker dealer as an outpatient 5. Hypertension-now stable Hold ARB upon DC secondary to resolving acute kidney injury, patient's daughter advised to follow with PCP who can restart ARB once kidney injury has resolved DC with Norvasc 6. Hypothyroidism: Apparently patient does not take thyroid medication as she was allergic to it -Should follow-up with endocrinology Patient Condition: Good Hospital Course Patient is a 76-year-old female history of diabetes, obesity who presents to the emergency room complaining of abdominal pain. Patient was found to be in sepsis secondary to cystitis, urine culture showed Klebsiella, patient also had acute kidney injury. Patient's sepsis and acute kidney injury improved with antibiotics and IV fluids. Patient has history of diabetes and had refused to be on insulin the past, her A1c was found to be elevated at 13.8 was started on insulin in house and was seen by telehealth nurse educator. Patient was advised that she will need to be on insulin upon discharge. Patient did have some vaginal itching at one point which was felt to be secondary to a yeast infection which was treated with Diflucan 150 mg p.o. 1. Patient's blood pressure was also elevated and she states that she was not taking her home ARB secondary to it causing her to have headaches. Patient was started on Norvasc in-house and ultimately was titrated to Norvasc 10 mg daily which did control her blood pressure. Patient and her daughter were told that she should hold her ARB upon discharge and she should follow-up with her primary care physician and if her acute kidney injury has resolved she should resume her ARB and depending on blood pressure she may or may not need the Norvasc. Patient was also told that she will need to follow-up with poker dealer for appropriate diabetes control. On day of discharge patient's vitals, labs and physical exam are stable, she had no further acute complaints and questions were answered. Home Meds Active Scripts Amlodipine Besylate* (Amlodipine Besylate*) 10 Mg Tablet, 10 MG PO DAILY, #60 TAB Prov:ALBERTO POP 04/04/17 Insulin Glargine* (Lantus*) 100 Unit/Ml Soln, 20 UNIT SC DAILY@08, #1 VIAL 1 Refill Prov:ALBERTO POP 04/04/17 Insulin Aspart* (Novolog Insulin Pen*) 100 Unit/Ml Soln, 10 UNIT SC WITH MEALS, #1 VIAL 1 Refill Prov:ALBERTO POP 04/04/17 Meloxicam* (Mobic*) 15 Mg Tablet, 15 MG PO DAILY, #20 TAB Prov:SANDRINE PEREZ MD 05/28/15 Docusate Sodium* (Colace*) 100 Mg Capsule, 100 MG PO TID, #30 Prov:MARINA DANIEL MD 01/27/15 Reported Medications Atorvastatin* (Atorvastatin*) 40 Mg Tablet, 40 MG PO QHS, #30 TAB 04/02/17 Dicyclomine Hcl* (Bentyl*) 10 Mg Capsule, 10 MG PO DAILY, CAP 04/02/17 Metformin Hcl* (Metformin Hcl*) 1,000 Mg Tablet, 1000 MG PO WITH BREAKFAST DINNE , #30 TAB 04/02/17 Levothyroxine Sodium* (Levothyroxine Sodium*) 50 Mcg Tablet, 50 MCG PO AC BREAKFAST, TAB STOPED TAKING THIS RX BAD SIDE EFFECTS REPORTED BY PT 01/27/15 Omeprazole* (Omeprazole*) 20 Mg Capsule.dr, 20 MG PO DAILY, CAP 12/16/14 Discontinued Reported Medications Hydrochlorothiazide* (Hydrochlorothiazide*) 25 Mg Tab, 25 MG PO DAILY, #30 TAB 04/02/17 Losartan Potassium* (Losartan Potassium*) 50 Mg Tablet, 50 MG PO DAILY, TAB 04/02/17 Hydrochlorothiazide* (Hydrochlorothiazide*) 25 Mg Tab, 25 MG PO DAILY, TAB 12/16/14 Glipizide* (Glipizide*) 10 Mg Tablet, 10 MG PO AC MEALS 04/12/13 Metformin Hcl* (Metformin Hcl*) 850 Mg Tablet, 850 MG PO BID, TAB 12/16/14 Follow-up Plan F/U WITH YOUR PCP IN 1-2 WEEKS PLEASE DISCUSS WITH YOUR PCP ABOUT RESTARTING LOSARTAN WHEN THE KIDNEYS HAVE RECOVERED, FOR NOW HOLD OFF ON LOSARTAN AND HAVE GIVEN YOU A NEW MEDICATION FOR BLOOD PRESSURE-NORVASC, YOUR PCP SHOULD EITHER CONTINUE THIS WITH LOSARTAN ONCE YOUR KIDNEYS HAVE NORMALIZED OR STOP THE NORVASC AND JUST USE LOSARTAN DEPENDING ON YOUR BLOOD PRESSURE Primary Care Provider Carlos Bergman MD Time spent on discharge: > 30 minutes ALBERTO POP Apr 04, 2017 18:03
[2017-04-05] MEDS ORDERED: INSULIN GLARGINE [LANtus] 3 ML PEN SC SCH (08:00)
[2017-04-05] MEDS ORDERED: AMLODIPINE 10 MG TAB PO SCH (09:00)
== END 2017-04-04 19:00 | disposition home or self-care (01) | DRG 872 ==
LOC: E/R 17:19 → PP2 22:17
PROVIDERS: ADMIT Family Medicine; ATTEND Family Medicine
PROC: 4A033R1 Measurement of Arterial Saturation, Peripheral, Percutaneous Approach (ICD-10-PCS; principal; 2017-04-01)
DX: A41.9 Sepsis, unspecified organism (principal); N17.9 Acute kidney failure, unspecified; E87.2 Acidosis; E11.22 Type 2 diabetes mellitus with diabetic chronic kidney disease; N30.00 Acute cystitis without hematuria; R19.7 Diarrhea, unspecified; E03.9 Hypothyroidism, unspecified; E78.5 Hyperlipidemia, unspecified; E11.65 Type 2 diabetes mellitus with hyperglycemia; B96.1 Klebsiella pneumoniae [K. pneumoniae] as the cause of diseases classified elsewhere; M81.0 Age-related osteoporosis without current pathological fracture; I12.9 Hypertensive chronic kidney disease with stage 1 through stage 4 chronic kidney disease, or unspecified chronic kidney disease; N18.9 Chronic kidney disease, unspecified; E66.9 Obesity, unspecified; Z68.33 Body mass index [BMI] 33.0-33.9, adult; Z79.84 Long term (current) use of oral hypoglycemic drugs; Z90.5 Acquired absence of kidney
CPT/HCPCS: 36415; 71010; 74176; 80048; 80053; 81001; 82270; 82803; 82962; 83036; 83605; 83735; 84436; 84439; 84443; 84480; 84481; 85025; 85610; 85730; 86674; 87040; 87045; 87075; 87086; 87177; 93005; 96365; 96366; 96375; J0696; J1815; J2270; J2405; J7030; P9612

== ENCOUNTER 2017-10-07 12:41 | Emergency (ER) | END 2017-10-07 16:42 | disposition home or self-care (01) ==